=== PATIENT | male | born 1985 | race Caucasian/White ===

== ENCOUNTER 2016-08-14 18:52 | Emergency (ER) | payer OTHER ==
[2016-08-14 19:05] VITALS: BP 141/94; BMI 31.0
--- NOTE | 2016-08-14 21:06 | DR.GENAD ---
HPI - PCP Primary Care Physician: LILY Stephen CLEMENTS - HPI Comment HPI Comment: PATIENT SAID INCREASING PAIN FROM ABSCESS. NO FEVER. NO DRAINAGE. - Complaint/Symptoms Chief Complaint Doctors Comments: ABSCESS LEFT UPPER BACK. Chief Complaint:: PT STATES, "I THINK I HAVE A CYST ON MY LEFT SHOULDER THAT NEEDS TO BE CUT OPEN." - Nurses notes reviewed Nurses Notes Review: Yes - Source History Provided: Patient - Mode of Arrival Mode of Arrival: Ambulatory - Timing Onset of Chief Complaint: 08/12/16 Came on: Suddenly - Duration Duration: Constant Duration: Days - Severity Severity: Moderate PMH - PMH Past Medical History: Yes Past Medical History: Anxiety, Hypertension Past Surgical History: Yes Surgical History: Tonsillectomy - Family History History of Family Medical Conditions: No - Social History Alcohol Use: None Do you use any recreational Drugs:: No Lives With: Family Lives Where: Home - infectious screening In the last 2 months have you had wt loss of >10#?: NO Have you had fever, night sweats or hemotysis?: No Have you traveled outside the country in the last 6 months?: No Isolation: Standard ROS - Review of Systems Constitutional: No Symptoms Reported. negative: Chills, Fever Eyes: No Symptoms Reported. negative: Eye Pain, Discharge ENTM: No Symptoms Reported. negative: Ear Pain, Nose Discharge, Nose Congestion , Throat Pain Respiratoy: No Symptoms Reported. negative: Productive Cough, Short of Breath, Wheezing, Hemoptysis Cardiovascular: No Symptoms Reported Gastrointestinal/Abdominal: No Symptoms Reported Genitourinary: No Symptoms Reported Neurological: Headache Musculoskeletal: Back Pain, Muscle Pain Integumentary: No Symptoms Reported Hematologic/Lymphatic: No Symptoms Reported Endocrine: No Symptoms Reported All Other Systems: Reviewed and Negative PE - Vital Signs Vitals: Temperature 98.0 F Pulse Rate 95 Respiratory Rate 20 Blood Pressure [Right Arm] 160/88 Blood Pressure 141/94 O2 Sat by Pulse Oximetry 97 - General Limitations: No Limitations General Appearance: Alert - Head Head Exam: Normal Inspection - Eyes Eye exam: Normal Appearance - ENT ENT Exam: Normal External Ear Exam External Ear Exam: Normal External Inspection TM/Canal Exam: Bilateral Normal Nose Exam: Normal Nose Exam Mouth Exam: Normal Inspection Throat Exam: Normal Inspection - Neck Neck Exam: Trachea Midline. negative: Tenderness, Meningismus, Lymphadenopathy - Chest Chest Inspection: Symmetric Chest Wall Rise, Abscess (LEFT UPPER BACK. FIRM, NO DRAINAGE.) - Respiratory Respiratory Exam: Normal Lung Sounds Bilat Respiratory Exam: Bilateral Clear to Auscultation - Cardiovascular Cardiovascular Exam: Regular Rate, Normal Rhythm, Normal Heart Sounds - Abdominal Exam Abdominal Exam: Normal Bowel Sounds, Soft. negative: Tenderness - Extremities Extremities Exam: Normal Inspection - Back Back Exam: Tenderness (LEFT UPPER BACK WITH ABSCESS.) - Neurologic Neurological Exam: Alert, Oriented X3 - Psychiatric Psychiatric Exam: Normal Affect, Normal Mood - Skin Skin Exam: Erythema MDM - Differential Diagnosis Differential Diagnosis: ABSCESS, CELLULITIS Course - Treatment Treatment: I&D DONE IN ED. NO PUS RECOVER - Education/Counseling Education/Counseling: Patient, Education Educated On: Treatment, Diagnosis, Needs for Follow Up ROR - Labs Reviewed Laboratory: 08/14/16 22:30 Back Gram Stain - Final 08/14/16 22:30 Back Wound Culture - Preliminary Procedures - Incision and Drainage I & D Procedure: betadine prep, sterile dressing applied Progress: I&D DONE. NO PUS RECOVER. - Diagnosis Discharge Problem: Abscess Cellulitis Qualifiers: Site of cellulitis: other site Qualified Code(s): L03.818 - Cellulitis of other sites - Discharge Plan Disposition: HOME, SELF-CARE Condition: Stable Prescriptions: Ibuprofen [Motrin Tab 800 mg] 800 mg PO BID PRN #20 tab PRN Reason: Pain/Inflammation Sulfamethoxazole-Trimethoprim [BACTRIM DS TAB 800/160 MG *] 1 tab PO BID #20 tab - Follow ups/Referrals Follow ups/Referrals: ALONDRA NEGRO [STAFF PHYSICIAN] - 2 days NFD,None [Primary Care Provider] - 2 days - Instructions Instructions: Cellulitis, [id number], Abscess, [id number] Additional Instructions: RETURN TO ED IF WORSE.
[2016-08-14] MEDS ORDERED: TORADOL 60 MG VIAL IM ONE (21:31)
[2016-08-14] MEDS ORDERED: TORADOL 60 MG VIAL ONE (21:32)
[2016-08-14] MEDS ORDERED: STERILE WATER IRRIGATION IR ONE ×2 (21:32→22:01)
[2016-08-14] MEDS ORDERED: XYLOCAINE 2 % (PLAIN) IM ONE (21:41)
[2016-08-14] MEDS ORDERED: XYLOCAINE 2 % (PLAIN) ONE (21:44)
[2016-08-14] MEDS ORDERED: TYLENOL #3 TAB (W/CODEINE) PO ONE ×2 (22:34→22:39)
[2016-08-14] MEDS ORDERED: BACTRIM DS TAB PO ONE ×2 (22:34→22:39)
== END 2016-08-14 22:48 | disposition home or self-care (01) ==
LOC: ER 18:59
PROC: 0H96XZZ Drainage of Back Skin, External Approach (ICD-10-PCS; principal; 2016-08-14)
DX: L02.212 Cutaneous abscess of back [any part, except buttock and flank] (principal); L03.818 Cellulitis of other sites
CPT/HCPCS: 10060; 87070; 87075; 87077; 87186; 87205; 96372; 99282; A4217; J1885; J2001

== ENCOUNTER 2016-09-13 18:35 | Emergency (ER) | payer OTHER ==
[2016-09-13 18:42] VITALS: BP 162/100; BMI 31.0
--- NOTE | 2016-09-13 19:04 | DR.GENAD ---
HPI - PCP Primary Care Physician: NFD - HPI Comment HPI Comment: WORSE TODAY. NO FINGER. - Complaint/Symptoms Chief Complaint Doctors Comments: REDNESS PAIN AND SWELLING LT 3RD FINGER TIMES 3 DAYS. Chief Complaint:: C/O LEFT MIDDLE FINGER TIP WITH REDNESS, WARMTH, TENDERNESS. PATIENT DENIES PUNCTURE WOUND, BITE, OR TRAUMA. Self Treatment fo Chief Complaint: MOTRIN AT HOME - Nurses notes reviewed Nurses Notes Review: Yes - Source History Provided: Patient - Mode of Arrival Mode of Arrival: Ambulatory - Timing Onset of Chief Complaint: 09/10/16 Came on: Suddenly - Duration Duration: Constant Duration: Days - Severity Severity: Moderate PMH - PMH Past Medical History: Yes Past Medical History: Anxiety, Hypertension Past Medical History Comment: PTSD, CHRONIC PAIN BOTH SHOULDERS DUE TO TORN ROTATOR CUFF Past Surgical History: Yes Surgical History: Tonsillectomy - Family History History of Family Medical Conditions: No - Social History Type of Tobacco Use: Cigarettes Alcohol Use: None Do you use any recreational Drugs:: No Lives With: Family Lives Where: Home - infectious screening In the last 2 months have you had wt loss of >10#?: NO Have you had fever, night sweats or hemotysis?: No Have you traveled outside the country in the last 6 months?: No Isolation: Standard ROS - Review of Systems Constitutional: No Symptoms Reported Eyes: No Symptoms Reported ENTM: No Symptoms Reported Respiratoy: No Symptoms Reported Cardiovascular: No Symptoms Reported Gastrointestinal/Abdominal: No Symptoms Reported Genitourinary: No Symptoms Reported Neurological: No Symptoms Reported Musculoskeletal: Left, Hand Integumentary: Other (REDNESS AND SWELLING LT 3RD FINGER.) Hematologic/Lymphatic: No Symptoms Reported Endocrine: No Symptoms Reported All Other Systems: Reviewed and Negative PE - Vital Signs Vitals: Temperature 98.1 F Pulse Rate 84 Respiratory Rate 20 Blood Pressure [Right Arm] 160/88 Blood Pressure 162/100 O2 Sat by Pulse Oximetry 97 - General Limitations: No Limitations General Appearance: Alert - Head Head Exam: Normal Inspection - Eyes Eye exam: Normal Appearance - ENT ENT Exam: Normal External Ear Exam External Ear Exam: Normal External Inspection TM/Canal Exam: Bilateral Normal Throat Exam: Normal Inspection - Neck Neck Exam: Trachea Midline - Chest Chest Inspection: Symmetric Chest Wall Rise - Respiratory Respiratory Exam: Normal Lung Sounds Bilat Respiratory Exam: Bilateral Clear to Auscultation - Cardiovascular Cardiovascular Exam: Regular Rate, Normal Rhythm, Normal Heart Sounds - Abdominal Exam Abdominal Exam: Normal Inspection - Extremities Extremities Exam: Tenderness (SWELLING, REDNESS AND TENDERNESS LT 3RD FINGER.) - Neurologic Neurological Exam: Alert, Oriented X3 - Psychiatric Psychiatric Exam: Normal Affect, Normal Mood - Skin Skin Exam: Erythema MDM - Additional Information Additional Information Obtained From: Old Records (3RD FINGER INFECTION.) - Differential Diagnosis Differential Diagnosis: INFECTED TIP 3RD LT FINGER. Course - Treatment Treatment: SEE ORDERS. ASPIRATED 3RD LT FINGER. NO PUS RECOVER, BLOOD FROM INFECTED SITE SUMITTED FOR CULTURE. BRIGHT RED IN COLOR. - Education/Counseling Education/Counseling: Patient, Education Educated On: Diagnosis, Needs for Follow Up - Diagnosis Discharge Problem: Infected finger - Discharge Plan Disposition: 01 HOME, SELF-CARE Condition: Stable Prescriptions: Acetaminophen with Codeine [Tylenol/Codeine #3 300-30 mg] 1 tab PO Q4-6H PRN # 12 tab PRN Reason: Pain Ibuprofen [Motrin Tab 800 mg] 800 mg PO Q8H PRN #20 tab PRN Reason: Pain/Inflammation Sulfamethoxazole-Trimethoprim [BACTRIM DS TAB 800/160 MG *] 1 tab PO BID #20 tab - Follow ups/Referrals Follow ups/Referrals: JORGITO FELICIANO [STAFF PHYSICIAN] - 2 days NFD,None [Primary Care Provider] - 2 days - Instructions Instructions: Fingertip Infection Additional Instructions: RETURN TO ED IF WORSE.
== END 2016-09-13 19:27 | disposition home or self-care (01) ==
LOC: ER 18:45
DX: L08.89 Other specified local infections of the skin and subcutaneous tissue (principal)
CPT/HCPCS: 87070; 87075; 87205; 99282

== ENCOUNTER 2016-09-17 01:32 | Emergency (ER) | payer OTHER ==
[2016-09-17 01:40] VITALS: BP 160/101; BMI 31.0
--- NOTE | 2016-09-17 02:20 | DR.GENAD ---
HPI - PCP Primary Care Physician: erika - HPI Comment HPI Comment: HISTORY BELOW. - Complaint/Symptoms Chief Complaint Doctors Comments: PAIN, SWELLING AND INFECTION OF LEFT MIDDLE FINGER. HERE IN ED 3 DAYS AGO. GIVEN MEDS. ATTEMT WAS MADE TO ASPIRATE WOUND 3 DAYS AGO. ONLY BOOD RECOVER. WAS SENT FOR CULT. NO GROWTH SO FAR. DENIES FEVER. INFECTION IS GETTING WORSE. Chief Complaint:: left finger infection - Nurses notes reviewed Nurses Notes Review: Yes - Source History Provided: Patient - Mode of Arrival Mode of Arrival: Ambulatory - Timing Onset of Chief Complaint: 09/10/16 Came on: Suddenly - Duration Duration: Constant Duration: Days - Severity Severity: Moderate PMH - PMH Past Medical History: No Past Medical History: Anxiety, Hypertension Past Surgical History: No Surgical History: Tonsillectomy - Family History History of Family Medical Conditions: No - Social History Does any household member use tobacco: No Alcohol Use: None Do you use any recreational Drugs:: No Lives With: Family Lives Where: Home - infectious screening In the last 2 months have you had wt loss of >10#?: NO Have you had fever, night sweats or hemotysis?: No Have you traveled outside the country in the last 6 months?: No Isolation: Standard ROS - Review of Systems Constitutional: No Symptoms Reported Eyes: No Symptoms Reported ENTM: No Symptoms Reported Respiratoy: No Symptoms Reported Cardiovascular: No Symptoms Reported Gastrointestinal/Abdominal: No Symptoms Reported Genitourinary: No Symptoms Reported Neurological: No Symptoms Reported Musculoskeletal: Left, Hand Integumentary: Other (INFECTED LT MID FINGER AT DISTAL TIP. RED AND TENDER.) Hematologic/Lymphatic: No Symptoms Reported Endocrine: No Symptoms Reported All Other Systems: Reviewed and Negative PE - Vital Signs Vitals: Temperature 97.7 F Pulse Rate 89 Respiratory Rate 18 Blood Pressure [Right Arm] 160/88 Blood Pressure 160/101 O2 Sat by Pulse Oximetry 97 - General Limitations: No Limitations General Appearance: Alert - Head Head Exam: Normal Inspection - Eyes Eye exam: PERRL. negative: Conjunctival Injection - ENT ENT Exam: Normal External Ear Exam - Chest Chest Inspection: Symmetric Chest Wall Rise - Respiratory Respiratory Exam: Normal Lung Sounds Bilat Respiratory Exam: Bilateral Clear to Auscultation - Cardiovascular Cardiovascular Exam: Regular Rate, Normal Rhythm - Abdominal Exam Abdominal Exam: Normal Bowel Sounds - Extremities Extremities Exam: Tenderness (LEFT MID FINGER SWOLLEN, RED DISTALLY.), Joint Swelling (PIP JOINT SWOLLEN.) - Back Back Exam: Normal Inspection - Neurologic Neurological Exam: Alert, Oriented X3 - Psychiatric Psychiatric Exam: Normal Affect, Normal Mood - Skin Skin Exam: Erythema MDM - Differential Diagnosis Differential Diagnosis: INFECTED LT MID FINGER. Course - Treatment Treatment: SEE ORDERS.. PATIENT REFER TO HAND SPECIALIST FOR FURTHER MANAGEMENT. - Education/Counseling Education/Counseling: Patient, Education Educated On: Treatment, Diagnosis, Needs for Follow Up ROR - Labs Reviewed Laboratory Results Reviewed?: Yes Result Diagrams: 09/17/16 02:28 09/17/16 02:28 Laboratory: 09/17/16 02:25 Finger - Left Middle Gram Stain - Final WBC 10.7 X10^3/uL (3.6-10.0) H 09/17/16 02:28 RBC 4.84 X10^6/uL (4.7-6.0) 09/17/16 02:28 Hgb 14.5 g/dL (13.5-18.0) 09/17/16 02:28 Hct 40.9 % (42.0-54.0) L 09/17/16 02:28 MCV 84.4 fL (80.0-100.0) 09/17/16 02:28 MCH 29.9 pg (27.0-34.0) 09/17/16 02:28 MCHC 35.4 g/dL (33.0-35.0) H 09/17/16 02:28 RDW 13.9 % (11.6-16.5) 09/17/16 02:28 Plt Count 270 X10^3/uL (150.0-450.0) 09/17/16 02:28 MPV 7.3 fL (7.4-11.0) L 09/17/16 02:28 Neut % 57.4 % (42.0-75.0) 09/17/16 02:28 Lymph % 29.8 % (21.0-51.0) 09/17/16 02:28 [place] % 10.0 % (0.0-13.0) 09/17/16 02:28 Eos % 1.8 % (0.9-2.9) 09/17/16 02:28 Baso % 1.0 % (0.2-1.0) 09/17/16 02:28 Neut # 6.1 x10^3/uL (2.2-4.8) H 09/17/16 02:28 Lymph # 3.2 X10^3/uL (1.3-2.9) H 09/17/16 02:28 [place] # 1.1 x10^3/uL (0.3-0.8) H 09/17/16 02:28 Eos # 0.2 x10^3/uL (0.0-0.2) 09/17/16 02:28 Baso # 0.1 X10^3/uL (0.0-0.1) 09/17/16 02:28 Absolute Nucleated RBC 0.1 /100WBC 09/17/16 02:28 Sodium 136 mmol/L (136-145) 09/17/16 02:28 Corrected Sodium TNP 09/17/16 02:28 Potassium 3.8 mmol/L (3.5-5.1) 09/17/16 02:28 Chloride 100 mmol/L (98-107) 09/17/16 02:28 Carbon Dioxide 23.8 mmol/L (21-32) 09/17/16 02:28 BUN 16 mg/dL (7-18) 09/17/16 02:28 Creatinine 1.00 mg/dL (0.70-1.30) 09/17/16 02:28 Est GFR (MDRD) Af Amer > 60 (>60) 09/17/16 02:28 Est GFR (MDRD) Non-Af > 60 (>60) 09/17/16 02:28 Glucose 102 mg/dL (65-99) H 09/17/16 02:28 Calcium 8.6 mg/dL (8.5-10.1) 09/17/16 02:28 - Diagnosis Discharge Problem: Finger infection Cellulitis Qualifiers: Site of cellulitis: extremity Site of cellulitis of extremity: finger Laterality: left Qualified Code(s): L03.012 - Cellulitis of left finger - Discharge Plan Disposition: 01 HOME, SELF-CARE Condition: Stable Prescriptions: Clindamycin HCl 300 mg PO Q6H #40 cap Ketorolac Tromethamine [Toradol Tab] 10 mg PO Q8H PRN #15 tab PRN Reason: Pain - Follow ups/Referrals Follow ups/Referrals: NFD,None [Primary Care Provider] - 3 days - Instructions Instructions: Fingertip Infection, Cellulitis Additional Instructions: RETURN TO ED IF WORSE. FOLLOW UP WITH HAND SPECIALIST MONDAY.
[2016-09-17 02:46] LABS: BASOPHILS # (AUTO) 0.1 X10^3/uL (0.0-0.1); EOSINOPHILS # (AUTO) 0.2 x10^3/uL (0.0-0.2); EOSINOPHILS % (AUTO) 1.8 % (0.9-2.9); HEMATOCRIT 40.9 % (42.0-54.0); HEMOGLOBIN 14.5 g/dL (13.5-18.0); LYMPHOCYTES # (AUTO) 3.2 X10^3/uL (1.3-2.9); LYMPHOCYTES % (AUTO) 29.8 % (21.0-51.0); MEAN CORPUSCULAR HEMOGLOBIN 29.9 pg (27.0-34.0); MEAN CORPUSCULAR HGB CONC 35.4 g/dL (33.0-35.0); MEAN CORPUSCULAR VOLUME 84.4 fL (80.0-100.0); MEAN PLATELET VOLUME 7.3 fL (7.4-11.0); MONOCYTES # (AUTO) 1.1 x10^3/uL (0.3-0.8); NEUTROPHILS # (AUTO) 6.1 x10^3/uL (2.2-4.8); NEUTROPHILS % (AUTO) 57.4 % (42.0-75.0); PLATELET COUNT 270 X10^3/uL (150.0-450.0); RED BLOOD COUNT 4.84 X10^6/uL (4.7-6.0); RED CELL DISTRIBUTION WIDTH 13.9 % (11.6-16.5); WHITE BLOOD COUNT 10.7 X10^3/uL (3.6-10.0)
[2016-09-17 02:51] LABS: BLOOD UREA NITROGEN 16 mg/dL (7-18); CALCIUM 8.6 mg/dL (8.5-10.1); CARBON DIOXIDE 23.8 mmol/L (21-32); CHLORIDE 100 mmol/L (98-107); GLUCOSE 102 mg/dL (65-99); SODIUM 136 mmol/L (136-145); eGFR BLACK RACES > 60 (>60); eGFR NON BLACK RACES > 60 (>60)
[2016-09-17] MEDS: TORADOL TAB PO ONE (03:14)
[2016-09-17] MEDS: CLEOCIN PO ONE (03:14)
[2016-09-17] MEDS ORDERED: CLEOCIN ONE (03:18)
[2016-09-17] MEDS ORDERED: TORADOL TAB PO ONE (03:18)
== END 2016-09-17 03:23 | disposition home or self-care (01) ==
LOC: ER 01:32
DX: L03.012 Cellulitis of left finger (principal); L08.89 Other specified local infections of the skin and subcutaneous tissue
CPT/HCPCS: 36415; 80048; 85025; 87040; 87070; 87077; 87186; 87205; 99282

== ENCOUNTER 2017-01-09 10:58 | Emergency (ER) | payer OTHER ==
[2017-01-09 11:04] VITALS: BP 146/89; BMI 31.0
--- NOTE | 2017-01-09 12:13 | DR.RASH ---
HPI - Time Seen Time seen: 12:15 - PCP Primary Care Physician: JESUS BOWMAN IN [place].. - HPI Comment HPI Comment: ABSCESS AND CELLULITIS LEFT ABDOMINAL WALL. PATIENTS GET LESIONS LIKE THESE DUE TO MRSA IN THE PAST. NOOO FEVER. DRAINAGE NOTED AT HOME. - Complaint Chief Complaint:: PT C/O HAS ABCESS TO THE LEFT SIDE OF HIS ABD REDNESS NOTED PTS HX OF [facility] AND HE WAS GIVEN ABX A FEW MONTH AGO... Chief Complaint Doctors Comments: ABSCESS AND CELLULITIS LEFT ABDOMINAL WALL. Onset of Chief Complaint: 01/05/17 Self Treatment fo Chief Complaint: NEOSPORIN, - Reviewed Nurses Notes Review: Yes - Source History Provided: Patient - Mode of Arrival Mode of Arrival: Ambulatory - Location Location: Left, Other (LT ABDOMINAL WALL/LOWER SECTION OF ABD.) - Quality Quality: Red, Painful, Pustules - Context Circumstances: Spontaneous onset History of: None - Severity Pain Severity: Moderate - Associated signs and symptoms Associated signs and symptoms: Abdominal pain (ABDOMINAL WALL, LEFT SIDE). denies: Fever, Sore throat, Red streaking PMH - PMH Past Medical History: Yes Past Medical History: Hypertension Past Medical History Comment: BIPOLAR, PTSD, INSOMNIA . Past Surgical History: No Surgical History: Tonsillectomy - Family History History of Family Medical Conditions: No - Social History Does patient currently use any type of tobacco product: Yes Have you used tobacco products in the last 12 months: Yes Type of Tobacco Use: Cigarettes How many years tobacco product used: 18 Does any household member use tobacco: No Alcohol Use: None Do you use any recreational Drugs:: Yes (THC) Lives With: Alone Lives Where: Home - infectious screening In the last 2 months have you had wt loss of >10#?: NO Have you had fever, night sweats or hemotysis?: No Have you traveled outside the country in the last 6 months?: No Isolation: Standard PE - Vital Signs Vitals: Temperature 97.2 F Pulse Rate 95 Respiratory Rate 18 Blood Pressure [Right Arm] 160/88 Blood Pressure 146/89 O2 Sat by Pulse Oximetry 99 - General Limitations: No Limitations General Appearance: Alert - Head Head Exam: Normal Inspection - Eyes Eye exam: Normal Appearance - ENT ENT Exam: Normal External Ear Exam External Ear Exam: Normal External Inspection TM/Canal Exam: Bilateral Normal Nose Exam: Normal Nose Exam Mouth Exam: Normal Inspection Teeth Exam: Normal Inspection Throat Exam: Normal Inspection - Neck Neck Exam: Normal Inspection - Chest Chest Inspection: Symmetric Chest Wall Rise - Respiratory Respiratory Exam: Normal Lung Sounds Bilat Respiratory Exam: Bilateral Clear to Auscultation - Cardiovascular Cardiovascular Exam: Regular Rate, Normal Rhythm, Normal Heart Sounds - Abdominal Exam Abdominal Exam: Normal Bowel Sounds, Soft (PUSTULAR LESIONS LT LOWER ABDOMINAL WALL.) - Extremities Extremities Exam: Normal Inspection - Back Back Exam: Normal Inspection - Neurologic Neurological Exam: Alert - Psychiatric Psychiatric Exam: Normal Affect, Normal Mood - Skin Skin Exam: Erythema, Other (PUSTULAR LESIONS LEFT ABDOMINAL WALL.) Type of Lesion: Abscess, Other (LEFT ABD WALL.) Distribution: Abdomen MDM - Differential Diagnosis Differential Diagnosis: Abscess, Cellulitis, Impetigo Course - Treatment Treatment: SEE ORDERS. - Education/Counseling Education/Counseling: Patient, Education Educated On: Diagnosis, Needs for Follow Up ROR - Labs Reviewed Laboratory: 01/09/17 12:30 Abdomen Gram Stain - Final - Diagnosis Discharge Problem: Abscess of abdominal wall, Cellulitis of abdominal wall - Discharge Plan Disposition: HOME, SELF-CARE Condition: Stable Prescriptions: Ibuprofen [MOTRIN TAB 800 MG *] 800 mg PO Q8H PRN #20 tab PRN Reason: Pain/Inflammation Sulfamethoxazole-Trimethoprim [BACTRIM DS TAB 800/160 MG *] 1 tab PO Q8H #30 tab - Follow ups/Referrals Follow ups/Referrals: NFD,None [Primary Care Provider] - 3 days - Instructions Instructions: Abscess, [id number], Cellulitis, Adult, [id number] Additional Instructions: RETURN TO ED IF WORSE.
== END 2017-01-09 13:14 | disposition home or self-care (01) ==
LOC: ER 11:07
DX: L02.211 Cutaneous abscess of abdominal wall (principal); L03.311 Cellulitis of abdominal wall; B95.62 Methicillin resistant Staphylococcus aureus infection as the cause of diseases classified elsewhere
CPT/HCPCS: 87070; 87075; 87077; 87186; 87205; 99282